=== PATIENT | male | born 1960 | race Caucasian/White ===

== ENCOUNTER 2022-10-27 12:06 | Inpatient (IN) | payer OTHER ==
[~2022-10-27] VITALS: Ht 167.6 cm; Wt 68.7 kg
[2022-10-27 14:30] LABS: HEMATOCRIT. 36.2 % (42.0-52.0); MEAN CORPUSCULAR VOLUME 84.6 fL (80.0-94.0); MEAN PLATELET VOLUME 6.9 fl (7.4-10.4); PLATELET 351 x1000/uL (130-400); RED BLOOD CELL COUNT 4.28 mill/uL (4.7-6.1); RED CELL DISTRIBUTION WIDTH 15.1 % (11.6-14.6)
[2022-10-27 14:53] LABS: PLATELET ESTIMATE NORMAL
[2022-10-27] MEDS ORDERED: CEFTRIAXONE 2 G PREMIX 50 ML IV ONE (15:30)
[2022-10-27] MEDS ORDERED: AZITHROMYCIN 500MG/250ML 250 ML IV ONE (15:30)
[2022-10-27] MEDS ORDERED: CEFTRIAXONE 2 G in DEXTROSE 5% WATER 50 ML IV NR (16:00)
[2022-10-27 16:45] LABS: CHLORIDE 99 mEq/L (98-107)
[2022-10-27] MEDS ORDERED: OXYC-105 PO (16:46)
[2022-10-27 16:48] LABS: INR 1.2
[2022-10-27] MEDS ORDERED: HYDRALAZINE 20MG/ML VIAL IV PRN (17:00)
[2022-10-27] MEDS ORDERED: NON FORMULARY PATIENT HOME MED XX SCH (17:30)
[2022-10-27] MEDS ORDERED: NALOXONE HCL 0.4MG/ML VIAL IV PRN (17:30)
[2022-10-27] MEDS: ACETAMINOPHEN 325MG TABLET PO SCH (17:42)
[2022-10-27] MEDS: OXYCODONE HCL 5MG TABLET PO SCH (17:43)
[2022-10-27] MEDS ORDERED: OXYCODONE HCL 10MG TABLET SR 12HR PO SCH (18:00)
[2022-10-28] MEDS: OXYCODONE HCL 5MG TABLET PO SCH ×3 (00:08→12:30)
[2022-10-28] MEDS: ACETAMINOPHEN 325MG TABLET PO SCH ×3 (00:08→12:30)
[2022-10-28 10:30] VITALS: BP 158/99
[2022-10-28 11:00] VITALS: BP 158/99
[2022-10-28] MEDS ORDERED: IPRATROPIUM/ALBUTEROL 0.5-3(2.5)MG/3ML NEB HHN PRN ×2 (11:00→19:00)
[2022-10-28 12:00] VITALS: BP 161/89
[2022-10-28] MEDS ORDERED: POTASSIUM CHLORIDE 20MEQ TABLET SR PO SCH (12:15)
[2022-10-28 12:20] VITALS: BP 151/74
[2022-10-28 12:30] VITALS: BP 151/74
[2022-10-28 12:41] LABS: BASOPHILS % 0.8 % (0.0-2.0); EOSINOPHILS % 3.4 % (0.0-5.0); HEMATOCRIT. 38.5 % (42.0-52.0); HEMOGLOBIN. 12.8 g/dL (14.0-18.0); LYMPHOCYTES % 7.8 % (20.0-50.0); MEAN CORPUSCULAR HEMOGLOBIN 28.6 pg (28.0-32.0); MEAN PLATELET VOLUME 6.5 fl (7.4-10.4); MONOCYTES % 9.1 % (2.0-8.0); NEUTROPHILS % 78.9 % (40.0-76.0); PLATELET 328 x1000/uL (130-400); RED BLOOD CELL COUNT 4.48 mill/uL (4.7-6.1); RED CELL DISTRIBUTION WIDTH 15.6 % (11.6-14.6)
[2022-10-28 12:47] LABS: CHLORIDE 100 mEq/L (98-107)
[2022-10-28 13:01] LABS: PHOSPHORUS 3.5 mg/dL (2.5-4.9); TOTAL IRON BINDING CAPACITY 345 ug/dL (250-450)
[2022-10-28 14:00] LABS: VITAMIN B12 SERUM 1331 pg/mL (211-911)
[2022-10-28 14:03] LABS: FOLIC ACID (FOLATE) SERUM > 20.00 ng/mL (>5.38)
[2022-10-28] MEDS ORDERED: ENOXAPARIN 40MG/0.4ML SYR SUBCUT SCH (15:00)
[2022-10-28] MEDS ORDERED: FAMOTIDINE 20MG TABLET PO SCH (21:00)
== END 2022-10-28 12:50 | disposition short-term general hospital (02) | DRG 136 ==
LOC: ER 12:06 → MICUSO 15:52 → EDBEDREQ 16:02 → EDBEDREQTM 16:02 → 8WST 10-28 10:26
PROVIDERS: ADMIT Internal Medicine; ATTEND Internal Medicine
DX: C34.91 Malignant neoplasm of unspecified part of right bronchus or lung (principal); E44.1 Mild protein-calorie malnutrition; J91.0 Malignant pleural effusion; J44.0 Chronic obstructive pulmonary disease with (acute) lower respiratory infection; D64.9 Anemia, unspecified; B19.20 Unspecified viral hepatitis C without hepatic coma; T79.A22S Traumatic compartment syndrome of left lower extremity, sequela; G89.29 Other chronic pain; E87.6 Hypokalemia; Z20.822 Contact with and (suspected) exposure to COVID-19; J98.11 Atelectasis; I10 Essential (primary) hypertension; Z87.891 Personal history of nicotine dependence
CPT/HCPCS: 36415; 71045; 71250; 76604; 80053; 82607; 82746; 83540; 83550; 83605; 83735; 83880; 84100; 84484; 85025; 87426; 87804; 93005; 99285; C9803; J0360; J0456; J0696; J7060

== ENCOUNTER 2022-12-29 06:56 | Inpatient (IN) | payer OTHER ==
[2022-12-29] VITALS (19 sets, daily range): BP systolic 81–130; BP diastolic 37–82
[~2022-12-29] VITALS: Ht 182.9 cm; Wt 71.7 kg
[~2022-12-29 06:56] MED LIST: OXYC-105 PO
[2022-12-29] MEDS ORDERED: SODIUM CHLORIDE 0.9% 1,000 ML IV ONE ×2 (08:00→09:45)
[2022-12-29 08:18] LABS: HEMOGLOBIN. 10.3 g/dL (14.0-18.0); MEAN CORPUSCULAR HEMOGLOBIN 29.2 pg (28.0-32.0); MEAN CORPUSCULAR VOLUME 93.4 fL (80.0-94.0); MEAN PLATELET VOLUME 7.9 fl (7.4-10.4); PLATELET 515 x1000/uL (130-400); RED BLOOD CELL COUNT 3.53 mill/uL (4.7-6.1); RED CELL DISTRIBUTION WIDTH 23.4 % (11.6-14.6)
[2022-12-29] MEDS ORDERED: LEVOFLOXACIN 750MG PREMIX 150 ML IV NR (08:30)
[2022-12-29] MEDS ORDERED: VANCOMYCIN 1G PREMIX 200 ML IV SCH ×2 (08:30→17:30)
[2022-12-29 09:30] LABS: BG BASE EXCESS -4.2 mmol/L (-2.0-2.0); BG CARBOXYHEMOGLOBIN 0.3 % (0.5-1.5); BG DEOXYHEMOGLOBIN 64.6 % (0.0-5.0); BG FRACTION INSPIRED OXYGEN 100; BG HCO3 ACT 22.6 mmol/L (22.0-26.0); BG METHEMOGLOBIN 0.4 % (0.0-1.5); BG OXYGEN SATURATION 34.9 % (92.0-98.5); BG OXYHEMOGLOBIN 34.7 % (94.0-97.0); BG PCO2 49.6 mmHg (35.0-45.0); BG PH 7.277 (7.350-7.450); BG PO2 < 30.3 mmHg (75.0-100.0); BG SAMPLE SITE LEFT RADIAL; BG TOTAL HEMOGLOBIN 10.6 g/dL (12.0-18.0); BG VENT MODE VENT - AC
[2022-12-29] MEDS ORDERED: CEFEPIME 1,000 MG in DEXTROSE 5% WATER 50 ML IV NR (09:30)
[2022-12-29 09:33] LABS: PLATELET ESTIMATE INCREASED
[2022-12-29 10:23] LABS: CLARITY URINE TURBID (CLEAR); COLOR URINE DARK YELLOW (YELLOW); KETONES URINE NEGATIVE (NEGATIVE); LEUKOCYTE ESTERASE URINE 3+ (NEGATIVE); NITRITE URINE NEGATIVE (NEGATIVE); OCCULT BLOOD URINE 3+ (NEGATIVE); PH URINE 5.5 (4.5-8.0); PROTEIN URINE 2+ (NEGATIVE); SPECIFIC GRAVITY URINE 1.014 (1.005-1.030)
[2022-12-29 11:14] LABS: BG BASE EXCESS -4.9 mmol/L (-2.0-2.0); BG CARBOXYHEMOGLOBIN 0.3 % (0.5-1.5); BG DEOXYHEMOGLOBIN 0.3 % (0.0-5.0); BG FRACTION INSPIRED OXYGEN 100; BG METHEMOGLOBIN 0.1 % (0.0-1.5); BG OXYGEN SATURATION 99.7 % (92.0-98.5); BG OXYHEMOGLOBIN 99.3 % (94.0-97.0); BG PCO2 26.7 mmHg (35.0-45.0); BG PH 7.447 (7.350-7.450); BG PO2 244.7 mmHg (75.0-100.0); BG VENT MODE VENT - AC
[2022-12-29] MEDS ORDERED: NOREPINEPHRINE 8MG/250ML PMX 250 ML IV PRN (12:15)
[2022-12-29] MEDS ORDERED: DEXTROSE 50% WATER 50ML SYRINGE IV PRN (12:30)
[2022-12-29] MEDS ORDERED: IPRATROPIUM/ALBUTEROL 0.5-3(2.5)MG/3ML NEB HHN PRN (12:30)
[2022-12-29] MEDS ORDERED: DOCUSATE SODIUM 100MG CAPSULE PEG PRN (12:30)
[2022-12-29] MEDS ORDERED: NOREPINEPHRINE 8 MG in DEXTROSE 5% WATER 250 ML IV PRN (12:30)
[2022-12-29] MEDS ORDERED: GUAIFENESIN 200MG/10ML SUGAR FREE UDC PEG PRN (12:30)
[2022-12-29] MEDS ORDERED: ONDANSETRON HCL 4MG/2ML INJ IV PRN (12:30)
[2022-12-29] MEDS ORDERED: CLONIDINE 0.1MG TABLET PEG PRN (12:30)
[2022-12-29] MEDS ORDERED: ACETAMINOPHEN 650MG/20.3ML UDC GT PRN ×2 (12:30)
[2022-12-29] MEDS ORDERED: MAGNESIUM/ALUMINUM HYDROXIDE/SIMETHICONE 30ML UDC PEG PRN (12:30)
[2022-12-29] MEDS ORDERED: DOPAMINE 400MG/250ML PREMIX 250 ML IV PRN (13:00)
[2022-12-29] MEDS ORDERED: PIPERACILLIN/TAZ 3.375G PREMIX 50 ML IV NR (13:00)
[2022-12-29 15:06] LABS: CHLORIDE 80 mEq/L (98-107)
[2022-12-29 15:10] LABS: HEMOGLOBIN. 10.1 g/dL (14.0-18.0); MEAN CORPUSCULAR VOLUME 91.9 fL (80.0-94.0); MEAN PLATELET VOLUME 7.5 fl (7.4-10.4); PLATELET 432 x1000/uL (130-400); RED BLOOD CELL COUNT 3.48 mill/uL (4.7-6.1)
[2022-12-29 15:25] LABS: PHOSPHORUS 6.1 mg/dL (2.5-4.9); TOTAL IRON BINDING CAPACITY 293 ug/dL (250-450)
[2022-12-29 15:37] LABS: T4 FREE 0.48 ng/dL (0.76-1.46)
[2022-12-29 16:57] LABS: VITAMIN B12 SERUM >2000 pg/mL pg/mL (211-911)
[2022-12-29] MEDS ORDERED: ENOXAPARIN 40MG/0.4ML SYR SUBCUT SCH (17:00)
[2022-12-29] MEDS ORDERED: INSULIN REGULAR (HUMULIN R) 300UNITS/3ML VIAL IV SCH (17:15)
[2022-12-29] MEDS ORDERED: SODIUM POLYSTYRENE SULFONATE 15 G/60 ML BOT PO NR (17:15)
[2022-12-29] MEDS ORDERED: DEXTROSE 50% WATER 50ML SYRINGE IV SCH (17:15)
[2022-12-29] MEDS ORDERED: ALBUTEROL (0.083%) 2.5MG/3ML NEB HHN NR (17:15)
[2022-12-29] MEDS ORDERED: CALCIUM GLUCONATE 1GM PREMIX 50 ML IV ONE (17:15)
[2022-12-29] MEDS ORDERED: SODIUM BICARBONATE 8.4% 1 MEQ/ML 50ML SYR IV NR (17:20)
[2022-12-29 17:22] LABS: PLATELET ESTIMATE INCREASED
[2022-12-29] MEDS ORDERED: SODIUM CHLORIDE 0.9% 1,000 ML IV SCH (17:30)
[2022-12-29] MEDS: SODIUM BICARBONATE 100 MEQ in DEXTROSE 5% WATER 1,000 ML IV SCH ×2 (18:49→22:08)
[2022-12-29] MEDS ORDERED: ALBUTEROL (0.5%) 2.5MG/0.5ML NEB HHN NR (19:00)
[2022-12-29] MEDS: IPRATROPIUM/ALBUTEROL 0.5-3(2.5)MG/3ML NEB HHN SCH (20:35)
[2022-12-29] MEDS ORDERED: PIPERACILLIN/TAZOBACTAM 3.375 G in DEXTROSE 5% WATER 50 ML IV SCH (22:00)
[2022-12-29] MEDS ORDERED: NOREPINEPHRINE 32 MG in DEXT 5% WATER 218 ML IV PRN (22:15)
[2022-12-29] MEDS: PIPERACILLIN/TAZOBACTAM 3.375 G in DEXTROSE 5% WATER 50 ML IV SCH (23:52)
[2022-12-30] VITALS (42 sets, daily range): BP systolic 41–170; BP diastolic 25–124
[2022-12-30] MEDS: IPRATROPIUM/ALBUTEROL 0.5-3(2.5)MG/3ML NEB HHN SCH ×2 (00:19→04:09)
[2022-12-30] MEDS ORDERED: SODIUM POLYSTYRENE SULFONATE 15 G/60 ML BOT PO NR (00:45)
[2022-12-30] MEDS ORDERED: CALCIUM GLUCONATE 100MG/ML 10ML VIAL IV NR (00:45)
[2022-12-30] MEDS ORDERED: SODIUM BICARBONATE 8.4% 1 MEQ/ML 50ML SYR IV NR (00:45)
[2022-12-30] MEDS ORDERED: AMIODARONE HCL 900 MG in DEXT 5% WATER 482 ML IV PRN (00:45)
[2022-12-30] MEDS ORDERED: INSULIN REGULAR (HUMULIN R) 300UNITS/3ML VIAL IV NR (00:45)
[2022-12-30] MEDS ORDERED: DEXTROSE 50% WATER 50ML SYRINGE IV NR (00:45)
[2022-12-30 01:53] LABS: D-DIMER 5.92 mg/L FEU (<0.50); INR 1.5; PROTHROMBIN TIME 15.7 sec (9.6-11.0)
[2022-12-30 05:43] LABS: HEMATOCRIT. 32.1 % (42.0-52.0); HEMOGLOBIN. 10.2 g/dL (14.0-18.0); MEAN CORPUSCULAR HEMOGLOBIN 29.3 pg (28.0-32.0); MEAN CORPUSCULAR VOLUME 92.4 fL (80.0-94.0); MEAN PLATELET VOLUME 7.4 fl (7.4-10.4); PLATELET 352 x1000/uL (130-400); RED BLOOD CELL COUNT 3.47 mill/uL (4.7-6.1); RED CELL DISTRIBUTION WIDTH 24.5 % (11.6-14.6)
[2022-12-30 05:51] LABS: CHLORIDE 77 mEq/L (98-107)
[2022-12-30 05:59] LABS: HDL CHOLESTEROL 28 mg/dL (40-59); LDL CHOLESTEROL 68 mg/dL (5-100)
[2022-12-30] MEDS: PIPERACILLIN/TAZOBACTAM 3.375 G in DEXTROSE 5% WATER 50 ML IV SCH (06:56)
[2022-12-30 07:34] LABS: NUCLEATED RED BLOOD CELLS 1 /100 WBC
[2022-12-30 07:35] LABS: PLATELET ESTIMATE NORMAL
[2022-12-30] MEDS ORDERED: MORPHINE SULFATE 250 MG in DEXT 5% WATER 225 ML IV PRN (08:00)
[2022-12-30] MEDS ORDERED: FAMOTIDINE 20MG/2ML VIAL IV SCH (09:00)
[2022-12-30] MEDS ORDERED: LIDOCAINE HCL 1% 30ML VIAL (10MG/ML) ONE (09:18)
[2022-12-30] MEDS ORDERED: VANCOMYCIN 1250MG in DEXTROSE 5% WATER 250ML IV SCH (16:00)
== END 2022-12-30 11:40 | DRG 720 ==
LOC: ER 06:56 → CVICU 11:02 → EDBEDREQSVC 11:04 → EDBEDREQ 11:04 → EDBEDREQTM 11:04
PROVIDERS: ADMIT Internal Medicine; ATTEND Internal Medicine
PROC: 5A1935Z Respiratory Ventilation, Less than 24 Consecutive Hours (ICD-10-PCS; principal; 2022-12-29)
PROC: 06HY33Z Insertion of Infusion Device into Lower Vein, Percutaneous Approach (ICD-10-PCS; 2022-12-29)
PROC: B54BZZA Ultrasonography of Right Lower Extremity Veins, Guidance (ICD-10-PCS; 2022-12-29)
DX: A41.9 Sepsis, unspecified organism (principal); N17.0 Acute kidney failure with tubular necrosis; J96.00 Acute respiratory failure, unspecified whether with hypoxia or hypercapnia; R65.21 Severe sepsis with septic shock; G92.8 Other toxic encephalopathy; J18.9 Pneumonia, unspecified organism; E87.1 Hypo-osmolality and hyponatremia; L89.90 Pressure ulcer of unspecified site, unspecified stage; Z93.0 Tracheostomy status; Z99.11 Dependence on respirator [ventilator] status; D64.9 Anemia, unspecified; D75.839 Thrombocytosis, unspecified; Z66 Do not resuscitate; Z20.822 Contact with and (suspected) exposure to COVID-19; M19.90 Unspecified osteoarthritis, unspecified site; E78.5 Hyperlipidemia, unspecified; N39.0 Urinary tract infection, site not specified; R13.10 Dysphagia, unspecified; E87.6 Hypokalemia; E03.9 Hypothyroidism, unspecified; E87.5 Hyperkalemia; I10 Essential (primary) hypertension; R62.7 Adult failure to thrive; Z93.1 Gastrostomy status; Z88.5 Allergy status to narcotic agent; Z51.5 Encounter for palliative care; Z85.118 Personal history of other malignant neoplasm of bronchus and lung; Z88.8 Allergy status to other drugs, medicaments and biological substances
CPT/HCPCS: 36415; 36600; 71045; 71250; 76604; 80048; 80053; 80061; 81003; 82375; 82533; 82607; 82728; 82746; 82805; 83036; 83540; 83550; 83605; 83735; 83880; 83930; 84100; 84145; 84439; 84443; 84484; 85025; 85379; 87070; 87186; 87426; 87804; 93005; 93970; 94002; 94003; 94640; 99285; C1893; C9803; J0610; J0692; J1265; J1650; J1815; J1956; J2543; J3370; J3490; J7030; J7060; J7070